=== PATIENT | male | born 1990 | race Caucasian/White ===

== ENCOUNTER 2021-10-27 10:50 | Outpatient (CLI) | payer BC, SELFPAY ==
--- NOTE | 2021-10-27 10:56 | RAD_ITS ---
STUDY: X-RAY - RIGHT KNEE REASON FOR EXAM: Male, 30 years old. PAIN TECHNIQUE: 4 view(s) of the knee. COMPARISON: None. FINDINGS: Normal visualized distal femur. Normal visualized proximal tibia and fibula. Normal proximal tibiofibular articulation. Normal medial femorotibial compartment. Normal lateral femorotibial compartment. Normal patellofemoral articulation. Moderate joint effusion. RAD/Knee 4 or More Views IMPRESSION: Moderate size joint effusion. Electronically Signed: Yovanny Burgess MD at 15:53 EST ,
[2021-10-27 12:33] LABS: Erythrocyte Sedimentation Rate 49 mm/hr (0-20)
[2021-10-27 12:53] LABS: ALB/GLOB Ratio 0.7 RATIO (0.9-2.4); AST(SGOT) 19 U/L (15-37); Alanine Aminotransfer ALT/SGPT 37 U/L (16-61); Albumin, Serum 3.8 g/dL (3.2-5.0); Alkaline Phosphatase 60 U/L (45-117); Anion Gap 5 (5-15); BUN 21 mg/dL (7-18); CRP 4.68 mg/L (0.0-3.0); Chloride 106 mmol/L (98-107); Creatinine, Serum 1.05 mg/dL (0.70-1.30); EST Glomerular Filtration Rate 87 mL/min (>60); Est Glom Filt Rate - Afr Amer 105 mL/min (>60); Globulin 5.6 g/dL (2.2-4.2); Glucose 86 mg/dL (74-106); Protein, Total 9.4 g/dL (6.4-8.2); Sodium Level 135 mmol/L (136-145)
[2021-10-27 13:32] LABS: Hepatitis B Surface Antibody Reactive; Hepatitis B Surface Antigen Non-Reactive (Nonreactive); Hepatitis C Antibody Non-Reactive (Nonreactive)
[2021-10-27 13:49] LABS: Absolute Lymphocyte Count 2.02 X10^3/uL (0.83-4.51); Basophil# 0.03 X10^3/uL; Basophil% 0.4 % (0-1); Eosinophil# 0.23 X10^3/uL; Hematocrit 48.9 % (40-54); Lymphocyte # 2.02 X10^3/ul (0.83-4.51); Mean Corp Hgb Conc 32.7 g/dL (32-36); Mean Corpuscular Hgb 26.2 pg (27.0-32.0); Mean Corpuscular Volume 80.2 fL (80-94); Monocyte# 0.46 X10^3/uL; Monocyte% 5.9 % (0-10); NRBC Flagged by Analyzer 0 % (0-5); Neutrophil % 64.3 % (47-70); Platelet Count 388 K/mm3 (150-450); RBC Distribution Width CV 13.5 % (11.6-14.6); RBC Distribution Width SD 39.2 fl (35.1-43.9); White Blood Count 7.8 K/mm3 (4.4-11.0)
[2021-10-29 15:01] LABS: CCP IgG Antibodies > 250 units (0-19)
== END 2021-10-27 23:59 | disposition short-term general hospital (02) ==
LOC: MTLAB 10:55
PROVIDERS: PCP Family Medicine; Referring Provider Internal Medicine Rheumatology; Visit Provider Internal Medicine Rheumatology
DX: M05.79 Rheumatoid arthritis with rheumatoid factor of multiple sites without organ or systems involvement (principal); M51.37 Other intervertebral disc degeneration, lumbosacral region
CPT/HCPCS: 36415; 73564; 80053; 85025; 85652; 86140; 86200; 86431; 86706; 86803; 87340

== ENCOUNTER 2021-11-21 17:45 | Outpatient (CLI) | payer BC, SELFPAY ==
[2021-11-21 17:47] LABS: Pathologist Comment May follow
[2021-11-21 19:12] LABS: AUTO B FLUID DILUENT BKGD CT WBC <0.1 RBC <0.01 (W<.1,R<.01)
[2021-11-21 19:13] LABS: Appearance /Synovial Fluid Cloudy (CLEAR); Color / Synovial Fluid Red (Pale Yellow); Source / Synovial Fluid R KNEE; Source- Body Fluid SYNOVIAL
[2021-11-21 19:17] LABS: Synovial Fld Polynuclear WBC % 36.9 %
[2021-11-21 19:18] LABS: Synovial Fld Mononuclear WBC % 63.1 %
[2021-11-21 20:34] LABS: Body Fluid QC Type(s) BF2Q,BF3Q; Lymph 22 %; Monocyte /Synovial Fluid 38 %; Neutrophil 40 % (0-25)
[2021-11-25 10:13] LABS: Pathologist Review Reviewed
== END 2021-11-21 23:59 | disposition home or self-care (01) ==
PROVIDERS: PCP Family Medicine; Referring Provider Internal Medicine Rheumatology; Visit Provider Internal Medicine Rheumatology
DX: M05.79 Rheumatoid arthritis with rheumatoid factor of multiple sites without organ or systems involvement (principal); M51.37 Other intervertebral disc degeneration, lumbosacral region; Z79.899 Other long term (current) drug therapy
CPT/HCPCS: 87070; 87075; 87205; 89050; 89051; 89060

== ENCOUNTER 2022-01-14 16:04 | Outpatient (CLI) | payer BC, SELFPAY ==
[2022-01-14 18:02] LABS: Absolute Lymphocyte Count 2.19 X10^3/uL (0.83-4.51); Absolute Neutrophil Count 5.7 X10^3/uL (2.0-7.7); Basophil# 0.05 X10^3/uL; Basophil% 0.6 % (0-1); Eosinophil# 0.17 X10^3/uL; Hemoglobin 16.5 g/dL (13.0-16.5); Lymphocyte # 2.19 X10^3/ul (0.83-4.51); Lymphocyte % 25.2 % (19-41); Mean Corpuscular Hgb 26.8 pg (27.0-32.0); Mean Corpuscular Volume 81.3 fL (80-94); Mean Platelet Vol. 10.2 fl (6.2-12.0); Monocyte# 0.55 X10^3/uL; Monocyte% 6.3 % (0-10); NRBC Flagged by Analyzer 0 % (0-5); Neutrophil # 5.71 X10^3/uL (2.7-7.7); Neutrophil % 65.7 % (47-70); Platelet Count 350 K/mm3 (150-450); RBC Distribution Width CV 13.9 % (11.6-14.6); RBC Distribution Width SD 39.9 fl (35.1-43.9); Red Blood Count 6.15 M/mm3 (4.6-6.2); White Blood Count 8.7 K/mm3 (4.4-11.0)
[2022-01-14 18:14] LABS: AST(SGOT) 36 U/L (15-37); Alanine Aminotransfer ALT/SGPT 80 U/L (16-61); Albumin, Serum 4.2 g/dL (3.2-5.0); Alkaline Phosphatase 57 U/L (45-117); Anion Gap 4 (5-15); BUN 21 mg/dL (7-18); BUN/Creat Ratio 17.8 RATIO (10-20); Calcium,Total 9.4 mg/dL (8.5-10.1); Chloride 105 mmol/L (98-107); Creatinine, Serum 1.18 mg/dL (0.70-1.30); EST Glomerular Filtration Rate 76 mL/min (>60); Est Glom Filt Rate - Afr Amer 91 mL/min (>60); Globulin 4.3 g/dL (2.2-4.2); Glucose 95 mg/dL (74-106); Potassium 4.1 mmol/L (3.5-5.1); Protein, Total 8.5 g/dL (6.4-8.2); Sodium Level 139 mmol/L (136-145)
== END 2022-01-14 23:59 | disposition home or self-care (01) ==
LOC: MTLAB 16:05
PROVIDERS: PCP Family Medicine; Referring Provider Internal Medicine Rheumatology; Visit Provider Internal Medicine Rheumatology
DX: M05.79 Rheumatoid arthritis with rheumatoid factor of multiple sites without organ or systems involvement (principal); M51.37 Other intervertebral disc degeneration, lumbosacral region
CPT/HCPCS: 36415; 80053; 85025

== ENCOUNTER → 2022-02-07 | Outpatient (CLI) | payer BC, SELFPAY ==
--- NOTE | 2022-02-07 09:12 | US_ITS ---
STUDY: ABDOMINAL ULTRASOUND - RIGHT UPPER QUADRANT REASON FOR VISIT: Male, 31 years old ELEVATED LIVER ENZYMES TECHNIQUE: Ultrasound evaluation of the right upper quadrant was performed with real-time and static jurado-scale imaging. TECHNICAL QUALITY: Adequate. COMPARISON: None. FINDINGS: Liver: The liver measures 17.4 cm. There is increased echogenicity consistent with fatty infiltration. The bile ducts are within normal limits. There is hepatic color flow. The direction of portal flow is hepatopetal. There is no demonstrated mass lesion. Gallbladder: Normal distended gallbladder. The gallbladder wall measures 2 mm. There is a negative sonographic Garcia''s sign. There is no pericholecystic fluid. There are no gallstones. Common Bile Duct (C.B.D.): The common bile duct measures 5 mm. Pancreas: Normal size of the head, body and tail of the pancreas. There is normal echogenicity of the pancreas. There is no demonstrated pancreatic mass or cyst. Right Kidney: Normal size of the right kidney. The right kidney measures 11.6 cm. Normal renal cortex. The right cortex measures 2.6 cm. There is no demonstrated renal mass or cyst. There is no right hydronephrosis. US/Abdomen Limited IMPRESSION: Fatty infiltration of the liver. Electronically Signed: Nima Monroy MD at 12:14 EDT ,
== END | disposition home or self-care (01) ==
LOC: US 09:10
PROVIDERS: PCP Family Medicine; Referring Provider Internal Medicine Rheumatology; Visit Provider Internal Medicine Rheumatology
DX: M05.79 Rheumatoid arthritis with rheumatoid factor of multiple sites without organ or systems involvement (principal); M51.37 Other intervertebral disc degeneration, lumbosacral region; Z79.899 Other long term (current) drug therapy
CPT/HCPCS: 76705

== ENCOUNTER → 2022-02-13 | Outpatient (CLI) | payer BC, SELFPAY ==
[2022-02-13 18:33] LABS: ALB/GLOB Ratio 0.9 RATIO (0.9-2.4); AST(SGOT) 34 U/L (15-37); Alanine Aminotransfer ALT/SGPT 60 U/L (16-61); Alkaline Phosphatase 58 U/L (45-117); Anion Gap 5 (5-15); BUN 27 mg/dL (7-18); BUN/Creat Ratio 20.9 RATIO (10-20); Calcium,Total 9.5 mg/dL (8.5-10.1); Chloride 107 mmol/L (98-107); Creatinine, Serum 1.29 mg/dL (0.70-1.30); EST Glomerular Filtration Rate 68 mL/min (>60); Est Glom Filt Rate - Afr Amer 82 mL/min (>60); Globulin 4.5 g/dL (2.2-4.2); Glucose 117 mg/dL (74-106); Protein, Total 8.5 g/dL (6.4-8.2); Sodium Level 139 mmol/L (136-145)
== END | disposition home or self-care (01) ==
LOC: MTLAB 16:16
PROVIDERS: PCP Family Medicine; Referring Provider Internal Medicine Rheumatology; Visit Provider Internal Medicine Rheumatology
DX: M05.79 Rheumatoid arthritis with rheumatoid factor of multiple sites without organ or systems involvement (principal); M51.37 Other intervertebral disc degeneration, lumbosacral region; Z79.899 Other long term (current) drug therapy
CPT/HCPCS: 36415; 80053

== ENCOUNTER → 2022-05-11 | Outpatient (CLI) | payer BC, SELFPAY ==
[2022-05-11 17:54] LABS: Absolute Lymphocyte Count 2.15 X10^3/uL (0.83-4.51); Absolute Neutrophil Count 7.7 X10^3/uL (2.0-7.7); Basophil# 0.05 X10^3/uL; Basophil% 0.5 % (0-1); Eosinophil# 0.12 X10^3/uL; Eosinophils% 1.1 % (0-5); Hematocrit 49.4 % (40-54); Hemoglobin 16.6 g/dL (13.0-16.5); Lymphocyte # 2.15 X10^3/ul (0.83-4.51); Lymphocyte % 19.7 % (19-41); Mean Corp Hgb Conc 33.6 g/dL (32-36); Mean Corpuscular Hgb 27.2 pg (27.0-32.0); Mean Corpuscular Volume 80.9 fL (80-94); Monocyte# 0.89 X10^3/uL; Monocyte% 8.2 % (0-10); NRBC Flagged by Analyzer 0 % (0-5); Neutrophil # 7.67 X10^3/uL (2.7-7.7); Neutrophil % 70.1 % (47-70); Platelet Count 287 K/mm3 (150-450); RBC Distribution Width CV 12.6 % (11.6-14.6); Red Blood Count 6.11 M/mm3 (4.6-6.2); White Blood Count 10.9 K/mm3 (4.4-11.0)
[2022-05-11 18:28] LABS: AST(SGOT) 29 U/L (15-37); Alanine Aminotransfer ALT/SGPT 49 U/L (16-61); Albumin, Serum 4.1 g/dL (3.2-5.0); Alkaline Phosphatase 46 U/L (45-117); Anion Gap 6 (5-15); BUN 20 mg/dL (7-18); BUN/Creat Ratio 17.1 RATIO (10-20); Calcium,Total 9.5 mg/dL (8.5-10.1); Chloride 105 mmol/L (98-107); Creatinine, Serum 1.17 mg/dL (0.70-1.30); EST Glomerular Filtration Rate 76 mL/min (>60); Est Glom Filt Rate - Afr Amer 92 mL/min (>60); Globulin 4.3 g/dL (2.2-4.2); Glucose 89 mg/dL (74-106); Potassium 3.8 mmol/L (3.5-5.1); Protein, Total 8.4 g/dL (6.4-8.2); Sodium Level 139 mmol/L (136-145)
== END | disposition home or self-care (01) ==
PROVIDERS: PCP Family Medicine; Referring Provider Internal Medicine Rheumatology; Visit Provider Internal Medicine Rheumatology
DX: M05.79 Rheumatoid arthritis with rheumatoid factor of multiple sites without organ or systems involvement (principal); M51.37 Other intervertebral disc degeneration, lumbosacral region; K76.0 Fatty (change of) liver, not elsewhere classified; Z79.899 Other long term (current) drug therapy
CPT/HCPCS: 36415; 80053; 85025

== ENCOUNTER → 2022-08-07 | Outpatient (CLI) | payer BC, SELFPAY ==
[2022-08-07 17:43] LABS: Absolute Lymphocyte Count 2.25 X10^3/uL (0.83-4.51); Absolute Neutrophil Count 4.8 X10^3/uL (2.0-7.7); Basophil# 0.05 X10^3/uL; Basophil% 0.6 % (0-1); Eosinophil# 0.23 X10^3/uL; Eosinophils% 2.8 % (0-5); Hematocrit 47.9 % (40-54); Hemoglobin 15.5 g/dL (13.0-16.5); Lymphocyte # 2.25 X10^3/ul (0.83-4.51); Lymphocyte % 27.7 % (19-41); Mean Corp Hgb Conc 32.4 g/dL (32-36); Mean Corpuscular Hgb 26.7 pg (27.0-32.0); Mean Corpuscular Volume 82.4 fL (80-94); Mean Platelet Vol. 10.1 fl (6.2-12.0); Monocyte# 0.78 X10^3/uL; Monocyte% 9.6 % (0-10); NRBC Flagged by Analyzer 0 % (0-5); Neutrophil % 59.1 % (47-70); Platelet Count 308 K/mm3 (150-450); RBC Distribution Width CV 13.5 % (11.6-14.6); RBC Distribution Width SD 40.2 fl (35.1-43.9); Red Blood Count 5.81 M/mm3 (4.6-6.2); White Blood Count 8.1 K/mm3 (4.4-11.0)
[2022-08-07 18:15] LABS: ALB/GLOB Ratio 0.9 RATIO (0.9-2.4); AST(SGOT) 29 U/L (15-37); Alanine Aminotransfer ALT/SGPT 52 U/L (16-61); Albumin, Serum 3.9 g/dL (3.2-5.0); Alkaline Phosphatase 60 U/L (45-117); Anion Gap 9 (5-15); BUN 20 mg/dL (7-18); BUN/Creat Ratio 17.2 RATIO (10-20); Calcium,Total 9.2 mg/dL (8.5-10.1); Chloride 103 mmol/L (98-107); Creatinine, Serum 1.16 mg/dL (0.70-1.30); EST Glomerular Filtration Rate 77 mL/min (>60); Est Glom Filt Rate - Afr Amer 93 mL/min (>60); Globulin 4.3 g/dL (2.2-4.2); Glucose 100 mg/dL (74-106); Potassium 3.7 mmol/L (3.5-5.1); Protein, Total 8.2 g/dL (6.4-8.2); Sodium Level 139 mmol/L (136-145)
== END | disposition home or self-care (01) ==
LOC: MTLAB 16:39
PROVIDERS: PCP Family Medicine; Referring Provider Internal Medicine Rheumatology; Visit Provider Internal Medicine Rheumatology
DX: M05.79 Rheumatoid arthritis with rheumatoid factor of multiple sites without organ or systems involvement (principal); M51.37 Other intervertebral disc degeneration, lumbosacral region; K76.0 Fatty (change of) liver, not elsewhere classified; Z79.899 Other long term (current) drug therapy
CPT/HCPCS: 36415; 80053; 85025

== ENCOUNTER → 2023-02-05 | Outpatient (CLI) | payer BC, SELFPAY ==
[2023-02-05 17:50] LABS: Absolute Lymphocyte Count 2.14 X10^3/uL (0.83-4.51); Absolute Neutrophil Count 5.4 X10^3/uL (2.0-7.7); Basophil# 0.04 X10^3/uL; Basophil% 0.5 % (0-1); Eosinophil# 0.22 X10^3/uL; Eosinophils% 2.6 % (0-5); Hematocrit 50.4 % (40-54); Hemoglobin 16.6 g/dL (13.0-16.5); Lymphocyte # 2.14 X10^3/ul (0.83-4.51); Lymphocyte % 25.1 % (19-41); Mean Corp Hgb Conc 32.9 g/dL (32-36); Mean Corpuscular Hgb 26.7 pg (27.0-32.0); Mean Corpuscular Volume 81.2 fL (80-94); Mean Platelet Vol. 10.1 fl (6.2-12.0); Monocyte% 8.2 % (0-10); NRBC Flagged by Analyzer 0 % (0-5); Neutrophil # 5.39 X10^3/uL (2.7-7.7); Neutrophil % 63.2 % (47-70); Platelet Count 320 K/mm3 (150-450); RBC Distribution Width CV 12.9 % (11.6-14.6); RBC Distribution Width SD 37.4 fl (35.1-43.9); Red Blood Count 6.21 M/mm3 (4.6-6.2); White Blood Count 8.5 K/mm3 (4.4-11.0)
[2023-02-05 18:04] LABS: ALB/GLOB Ratio 0.9 RATIO (0.9-2.4); AST(SGOT) 35 U/L (15-37); Alanine Aminotransfer ALT/SGPT 59 U/L (16-61); Alkaline Phosphatase 56 U/L (45-117); Anion Gap 5 (5-15); BUN 23 mg/dL (7-18); BUN/Creat Ratio 19.5 RATIO (10-20); Calcium,Total 9.2 mg/dL (8.5-10.1); Chloride 110 mmol/L (98-107); Creatinine, Serum 1.18 mg/dL (0.70-1.30); EST Glomerular Filtration Rate 75 mL/min (>60); Est Glom Filt Rate - Afr Amer 91 mL/min (>60); Globulin 4.5 g/dL (2.2-4.2); Glucose 98 mg/dL (74-106); Potassium 3.9 mmol/L (3.5-5.1); Protein, Total 8.5 g/dL (6.4-8.2); Sodium Level 141 mmol/L (136-145)
== END | disposition home or self-care (01) ==
LOC: MTLAB 16:50
PROVIDERS: PCP Family Medicine; Referring Provider Internal Medicine Rheumatology; Visit Provider Internal Medicine Rheumatology
DX: M05.79 Rheumatoid arthritis with rheumatoid factor of multiple sites without organ or systems involvement (principal); Z79.899 Other long term (current) drug therapy; M51.37 Other intervertebral disc degeneration, lumbosacral region; K76.0 Fatty (change of) liver, not elsewhere classified
CPT/HCPCS: 36415; 80053; 85025

== ENCOUNTER → 2023-08-06 | Outpatient (CLI) | payer BC, SELFPAY ==
[2023-08-06 17:49] LABS: Absolute Lymphocyte Count 2.27 X10^3/uL (0.83-4.51); Absolute Neutrophil Count 4.6 X10^3/uL (2.0-7.7); Basophil# 0.06 X10^3/uL; Basophil% 0.8 % (0-1); Eosinophil# 0.27 X10^3/uL; Eosinophils% 3.4 % (0-5); Hematocrit 48.9 % (40-54); Hemoglobin 15.6 g/dL (13.0-16.5); Lymphocyte # 2.27 X10^3/ul (0.83-4.51); Lymphocyte % 28.7 % (19-41); Mean Corp Hgb Conc 31.9 g/dL (32-36); Mean Corpuscular Hgb 26.5 pg (27.0-32.0); Mean Platelet Vol. 10.4 fl (6.2-12.0); Monocyte# 0.67 X10^3/uL; Monocyte% 8.5 % (0-10); NRBC Flagged by Analyzer 0 % (0-5); Neutrophil # 4.61 X10^3/uL (2.7-7.7); Neutrophil % 58.3 % (47-70); Platelet Count 294 K/mm3 (150-450); RBC Distribution Width SD 38.8 fl (35.1-43.9); Red Blood Count 5.89 M/mm3 (4.6-6.2); White Blood Count 7.9 K/mm3 (4.4-11.0)
[2023-08-06 18:43] LABS: ALB/GLOB Ratio 0.8 RATIO (0.9-2.4); AST(SGOT) 28 U/L (15-37); Alanine Aminotransfer ALT/SGPT 53 U/L (16-61); Albumin, Serum 3.7 g/dL (3.2-5.0); Alkaline Phosphatase 55 U/L (45-117); Anion Gap 7 (5-15); BUN 17 mg/dL (7-18); BUN/Creat Ratio 14.8 RATIO (10-20); Calcium,Total 9.2 mg/dL (8.5-10.1); Chloride 106 mmol/L (98-107); Creatinine, Serum 1.15 mg/dL (0.70-1.30); EST Glomerular Filtration Rate 77 mL/min (>60); Est Glom Filt Rate - Afr Amer 93 mL/min (>60); Globulin 4.6 g/dL (2.2-4.2); Glucose 85 mg/dL (74-106); Potassium 3.6 mmol/L (3.5-5.1); Protein, Total 8.3 g/dL (6.4-8.2); Sodium Level 141 mmol/L (136-145)
== END | disposition home or self-care (01) ==
LOC: MTLAB 16:31
PROVIDERS: PCP Family Medicine; Referring Provider Internal Medicine Rheumatology; Visit Provider Internal Medicine Rheumatology
DX: M05.79 Rheumatoid arthritis with rheumatoid factor of multiple sites without organ or systems involvement (principal); K76.0 Fatty (change of) liver, not elsewhere classified; Z79.899 Other long term (current) drug therapy
CPT/HCPCS: 36415; 80053; 85025

== ENCOUNTER → 2024-01-28 | Outpatient (CLI) | payer BC, SELFPAY ==
[2024-01-28 17:30] LABS: Absolute Lymphocyte Count 2.42 X10^3/uL (0.83-4.51); Absolute Neutrophil Count 5.1 X10^3/uL (2.0-7.7); Basophil# 0.05 X10^3/uL; Basophil% 0.6 % (0-1); Eosinophil# 0.21 X10^3/uL; Eosinophils% 2.5 % (0-5); Hematocrit 44.7 % (40-54); Hemoglobin 14.5 g/dL (13.0-16.5); Lymphocyte # 2.42 X10^3/ul (0.83-4.51); Lymphocyte % 28.2 % (19-41); Mean Corp Hgb Conc 32.4 g/dL (32-36); Mean Corpuscular Hgb 26.4 pg (27.0-32.0); Mean Corpuscular Volume 81.3 fL (80-94); Mean Platelet Vol. 10.4 fl (6.2-12.0); Monocyte# 0.72 X10^3/uL; Monocyte% 8.4 % (0-10); NRBC Flagged by Analyzer 0 % (0-5); Neutrophil # 5.14 X10^3/uL (2.7-7.7); Neutrophil % 59.9 % (47-70); Platelet Count 302 K/mm3 (150-450); RBC Distribution Width CV 13.2 % (11.6-14.6); RBC Distribution Width SD 38.3 fl (35.1-43.9); White Blood Count 8.6 K/mm3 (4.4-11.0)
[2024-01-28 18:06] LABS: ALB/GLOB Ratio 0.9 RATIO (0.9-2.4); AST(SGOT) 28 U/L (15-37); Alanine Aminotransfer ALT/SGPT 62 U/L (16-61); Albumin, Serum 3.6 g/dL (3.2-5.0); Alkaline Phosphatase 51 U/L (45-117); Anion Gap 5 (5-15); BUN 17 mg/dL (7-18); BUN/Creat Ratio 15.6 RATIO (10-20); Calcium,Total 8.8 mg/dL (8.5-10.1); Chloride 111 mmol/L (98-107); Creatinine, Serum 1.09 mg/dL (0.70-1.30); EST Glomerular Filtration Rate 82 mL/min (>60); Est Glom Filt Rate - Afr Amer 99 mL/min (>60); Globulin 4.2 g/dL (2.2-4.2); Glucose 92 mg/dL (74-106); Potassium 3.7 mmol/L (3.5-5.1); Protein, Total 7.8 g/dL (6.4-8.2); Sodium Level 141 mmol/L (136-145)
== END | disposition home or self-care (01) ==
LOC: MTLAB 16:38
PROVIDERS: PCP Family Medicine; Referring Provider Internal Medicine Rheumatology; Visit Provider Internal Medicine Rheumatology
DX: M05.70 Rheumatoid arthritis with rheumatoid factor of unspecified site without organ or systems involvement (principal); M51.37 Other intervertebral disc degeneration, lumbosacral region; K76.0 Fatty (change of) liver, not elsewhere classified; Z79.899 Other long term (current) drug therapy
CPT/HCPCS: 36415; 80053; 85025

== ENCOUNTER → 2024-04-28 | Outpatient (CLI) | payer BC, SELFPAY ==
[2024-04-28 17:39] LABS: Absolute Lymphocyte Count 2.61 X10^3/uL (0.83-4.51); Absolute Neutrophil Count 5.5 X10^3/uL (2.0-7.7); Basophil# 0.06 X10^3/uL; Basophil% 0.7 % (0-1); Eosinophil# 0.24 X10^3/uL; Eosinophils% 2.6 % (0-5); Hematocrit 47.7 % (40-54); Hemoglobin 15.4 g/dL (13.0-16.5); Lymphocyte # 2.61 X10^3/ul (0.83-4.51); Lymphocyte % 28.6 % (19-41); Mean Corp Hgb Conc 32.3 g/dL (32-36); Mean Corpuscular Hgb 26.6 pg (27.0-32.0); Mean Corpuscular Volume 82.4 fL (80-94); Mean Platelet Vol. 10.1 fl (6.2-12.0); Monocyte# 0.69 X10^3/uL; Monocyte% 7.6 % (0-10); NRBC Flagged by Analyzer 0 % (0-5); Neutrophil # 5.47 X10^3/uL (2.7-7.7); Neutrophil % 60.1 % (47-70); Platelet Count 295 K/mm3 (150-450); RBC Distribution Width CV 13.3 % (11.6-14.6); RBC Distribution Width SD 39.6 fl (35.1-43.9); Red Blood Count 5.79 M/mm3 (4.6-6.2); White Blood Count 9.1 K/mm3 (4.4-11.0)
[2024-04-28 18:18] LABS: ALB/GLOB Ratio 0.9 RATIO (0.9-2.4); AST(SGOT) 38 U/L (15-37); Alanine Aminotransfer ALT/SGPT 62 U/L (16-61); Albumin, Serum 3.9 g/dL (3.2-5.0); Alkaline Phosphatase 53 U/L (45-117); Anion Gap 8 (5-15); BUN 20 mg/dL (7-18); BUN/Creat Ratio 13.8 RATIO (10-20); Calcium,Total 9.4 mg/dL (8.5-10.1); Chloride 107 mmol/L (98-107); Creatinine, Serum 1.45 mg/dL (0.70-1.30); EST Glomerular Filtration Rate 59 mL/min (>60); Est Glom Filt Rate - Afr Amer 71 mL/min (>60); Globulin 4.5 g/dL (2.2-4.2); Glucose 95 mg/dL (74-106); Potassium 3.6 mmol/L (3.5-5.1); Protein, Total 8.4 g/dL (6.4-8.2); Sodium Level 139 mmol/L (136-145)
== END | disposition home or self-care (01) ==
LOC: MTLAB 16:37
PROVIDERS: PCP Family Medicine; Referring Provider Internal Medicine Rheumatology; Visit Provider Internal Medicine Rheumatology
DX: M05.70 Rheumatoid arthritis with rheumatoid factor of unspecified site without organ or systems involvement (principal); K76.0 Fatty (change of) liver, not elsewhere classified; Z79.899 Other long term (current) drug therapy
CPT/HCPCS: 36415; 80053; 85025

== ENCOUNTER → 2024-07-21 | Outpatient (CLI) | payer BC, SELFPAY ==
[2024-07-21 17:31] LABS: Absolute Lymphocyte Count 2.21 X10^3/uL (0.83-4.51); Absolute Neutrophil Count 6.1 X10^3/uL (2.0-7.7); Basophil# 0.05 X10^3/uL; Basophil% 0.5 % (0-1); Eosinophil# 0.23 X10^3/uL; Eosinophils% 2.4 % (0-5); Hematocrit 51.4 % (40-54); Hemoglobin 16.8 g/dL (13.0-16.5); Lymphocyte # 2.21 X10^3/ul (0.83-4.51); Lymphocyte % 23.5 % (19-41); Mean Corp Hgb Conc 32.7 g/dL (32-36); Mean Corpuscular Hgb 26.5 pg (27.0-32.0); Mean Corpuscular Volume 81.1 fL (80-94); Mean Platelet Vol. 9.9 fl (6.2-12.0); Monocyte# 0.77 X10^3/uL; Monocyte% 8.2 % (0-10); NRBC Flagged by Analyzer 0 % (0-5); Neutrophil # 6.11 X10^3/uL (2.7-7.7); Platelet Count 273 K/mm3 (150-450); RBC Distribution Width CV 13.2 % (11.6-14.6); RBC Distribution Width SD 38.1 fl (35.1-43.9); Red Blood Count 6.34 M/mm3 (4.6-6.2); White Blood Count 9.4 K/mm3 (4.4-11.0)
--- OUTSIDE RECORDS SUMMARY | 2024-07-21 17:41 | XMS RPT_ITS | CCD ---
Author Organization [facility] Care Team Providers Care Advice Clerk Name Role Phone Tony Garcia MD Unavailable Tony Garcia MD Unavailable Mervat PETE, Dr. Joseph Unavailable [phone] Yesy ANG, Tristan Maxwell Unavailable [phone] Kirby BUNDLE SORTER, Judith Unavailable Unavailable Don DENNY, Ynes Loza Unavailable Unavaila sharon Caro BUNDLE SORTER, Simone Unavailable Unavailable Kyleigh BUNDLE SORTER, Hallie Mckeon Unavailable Unavailab le Zaugg BUNDLE SORTER, Anna Unavailable Unavailable Unavailable Unavailable Medications Current Medications Medication Drug Class(es) Dates Sig (Normalized) Sig (Original) Glucosamine Chondr 1500 Complx Oral Capsule (9 sources) Glucosamine Chondr 1500 Complx Oral Capsule ; 1 daily hydroxychloroquine sulfate 200 mg oral tablet (9 sources) Antimalarial, Antirheumatic Agent PlaqueniL 200 mg tablet ; daily (200 mg) naproxen sodium 220 mg oral capsule (9 sources) Nonsteroidal Anti-inflammatory Drug take 1 capsule by mouth once daily Aleve 220 MG Oral Capsule ; 1 daily (220 MG) Completed/Discontinued Medications Medication Drug Class(es) Dates Sig (Normalized) Sig (Original) amoxicillin 500 mg oral tablet (9 sources) Penicillin-class Antibacterial Start: 01-24-2019 End: 02-03-2019 take 1 tablet by mouth three times daily Amoxicillin 500 MG Oral Tablet ; 1 (one) Tablet tid for 10 days Quantity: 30 {Tablet} Refills: 0 Ordered: 24-Jan-2019 MD Tony Garcia Start: 24-Jan-2019 End: 03-Feb-2019 Status: Inactive benzonatate 100 mg oral capsule (9 sources) Non-narcotic Antitussive Start: 01-14-2024 End: 04-10-2024 benzonatate 100 mg capsule ; 1 (one) capsule tid prn cough for 0 days Quantity: 30 {Capsule} Refills: 0 Ordered: 10-Apr-2024 JACOB Orrelle Start: 14-Jan-2024 End: 10-Apr-2024 Status: Inactive cephalexin 500 mg oral capsule (9 sources) Cephalosporin Antibacterial Start: 01-14-2024 End: 01-24-2024 cephALEXin 500 mg capsule ; 2 (two) capsule bid for 10 days Quantity: 40 {Capsule} Refills: 0 Ordered: 14-Jan-2024 MD Tony Garcia Start: 14-Jan-2024 End: 24-Jan-2024 Status: Inactive cyclobenzaprine hydrochloride 10 mg oral tablet (9 sources) Muscle Relaxant Start: 09-02-2018 End: 01-24-2019 take 1 tablet by mouth three times daily as needed Cyclobenzaprine HCl 10 MG Oral Tablet ; 1 (one) Tablet Three times a day as needed for 0 days Quantity: 30 {Tablet} Refills: 0 Ordered: 24-Jan-2019 JACOB Arizmendi Hallie Mckeon Start: 02-Sep-2018 End: 24-Jan-2019 Status: Inactive Comments: Medication taken as needed. may cause drowsiness Comment on above: Medication taken as needed. may cause drowsiness Fish Oils (9 sources) take 1 capsule by mouth once daily Fish Oil 300 MG Oral Capsule ; 1 daily (300 MG) Status: Inactive take 1 capsule by mouth once chiquita ly Fish Oil 300 MG Oral Capsule ; 1 daily (300 MG) meloxicam 15 mg oral tablet (9 sources) Nonsteroidal Anti-inflammatory Drug Start: 08-11-2021 End: 01-14-2024 meloxicam 15 mg tablet ; 1 (one) Tablet daily for 0 days Quantity: 90 {Tablet} Refills: 0 Ordered: 14-Jan-2024 JACOB Caro Start: 11-Aug-2021 End: 14-Jan-2024 Status: Inactive predniSONE 20 mg oral tablet (9 sources) Start: 09-02-2018 End: 01-24-2019 take 3 tablets by mouth once daily, then take 2 tablets by mouth once daily, then take 1 tablet by mouth once daily, then take 0.5 tablet by mouth once daily PredniSONE 20 MG Oral Tablet ; Tablet for 0 days Quantity: 20 {Tablet} Refills: 0 Ordered: 24-Jan-2019 JACOB Arizmendi Hallie Mckeon Start: 02-Sep-2018 End: 24-Jan-2019 Status: Inactive Comments: Take 3tabs qd for 3 days thenTake 2tabs qd for 3 days thenTake 1tab qd for 3 days thenTake 1/2tab qd for 4 days. Comment on above: Take 3tabs qd for 3 days thenTake 2tabs qd for 3 days thenTake 1tab qd for 3 days thenTake 1/2tab qd for 4 days. Problems Active Problems Problem Classification Problem Date Documented Da te Episodic/Chronic Chronic obstructive pulmonary disease and bronchiectasis (18 sources) Bronchitis; Translations: [Bronchitis, not specified as acute or chronic] 01-14-2024 Episodic Diabetes mellitus without complication (8 sources) Hyperglycemia; Translations: [Hyperglycemia, unspecified] 04-10-2024 Episodic Immunizations and screening for infectious disease (8 sources) Requires diphtheria, tetanus and pertussis vaccination; Translations: [Encounter for immunization] 04-10-2024 Episodic Influenza (18 sources) Influenza; Translations: [Influenza due to unidentified influenza virus with other respiratory manifestations] 10-13-2019 Episodic Osteoarthritis (20 sources) Osteoarthritis of multiple joints ; Translations: [Polyosteoarthritis, unspecified] 01-14-2024 Chronic Other connective tissue disease (18 sources) Disorder of tendon; Translations: [Unspecified disorder of synovium and tendon, unspecified site] 01-14-2024 Episodic Other non-traumatic joint disorders (18 sources) Pain in wrist; Translations: [Pain in unspecified wrist] 01-14-2024 Episodic Other upper respiratory infections (18 sources) Pharyngitis; Translations: [Acute pharyngitis, unspecified] 10-13-2019 Episodic Rheumatoid arthritis and related disease (20 sources) Rheumatoid arthritis; Translations: [Rheumatoid arthritis, unspecified] 01-14-2024 Chronic Screening and history of mental health and substance abuse codes (20 sources) Patient encounter status; Translations: [Encounter for screening for depression] 01-14-2024 Episodic Spondylosis; intervertebral disc disorders; other back problems (18 sources) Low back pain; Translations: [Lumbago] 01-14-2024 Episodic Past or Other Problems Problem Classification Problem Date Documented Da te Episodic/Chronic Unclassified (9 sources) Cold Symptoms - Symptoms include productive cough, wheezing and fever (Wednesday -Wednesday 100-102), but do not include nasal congestion. The onset was 5 day(s) ago. The patient describes this as mild and improving. Current treatment includes non-prescription cold medication. Note for Upper respiratory infection : reviewed by [facility] 01-14-2024 Unclassified (9 sources) Wrist pain - The onset of the wrist pain has been gradual following no specific incident and has been occurring in a persistent pattern for 1 year. The course has been recurrent. The wrist pain is characterized as a moderate stiffness. Aggravating factors include any movement. Relieving factors include bracing (sometimes). Associated features include painful ROM, decreased ROM, difficulty opening doors and difficulty turning keys in the ignition, but do not include muscle weakness, popping/crepitus, difficulty with fine motor skills or difficulty with lifting. Note for Wrist pain : both wristspt says its goes from joint to joint it seems likehas a hard time gripping things as well 07-02-2021 Unclassified (5 sources) Knee pain - The knee pain has been occurring for 4 days. The knee pain is in the left knee. The knee pain is characterized as a sharp stabbing (Throbbing). The knee pain is described as being located in the entire knee. The knee pain is aggravated by physical activity and work duties. There were no relieving factors. The symptoms have been associated with joint swelling, but have not been associated with warmth. Note for Knee pain : No recent injuries. No family history of arthritis 10-13-2019 Unclassified (5 sources) [ADDITIONAL REASON] Hand pain - The onset of the hand pain has been gradual and has been occurring in a persistent pattern for 4 days. The course has been worsening. The hand pain is characterized as a sharp stabbing (throbbing). The hand pain is described as being located in the entire hand (bilateral hands). The hand pain is aggravated by physical activity. There have been no relieving factors. The symptoms have been associated with joint swelling, but have not been associated with warmth or erythema. Note for Hand pain : No recent injuries. 10-13-2019 Unclassified (9 sources) Cold Symptoms - Symptoms include sore throat, productive cough, chills, general malaise and facial pain, but do not include sneezing, nasal congestion, runny nose, ear pain, fever or headache. The onset was sudden 3 day(s) ago. The symptoms occur constantly. The patient describes this as moderate in severity and unchanged. Current treatment includes non-prescription cold medication. Patient denies history of seasonal allergies or asthma. 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 The pain is characterized as a dull ache (becomes a sharper pain at times). The pain is located in the lower back and does not radiate. The pain has been associated with back stiffness (sometimes). Note for Back pain : With bending over and getting back up, the pain becomes worse.Can feel an area that is like a bump on his lower back. reviewed by [facility] 09-02-2018 Unclassified (9 sources) Cold Symptoms - Symptoms include nasal congestion, runny nose, sore throat, productive cough, fever and chills. The onset was sudden 4 day(s) ago. The symptoms occur constantly. The patient describes this as moderate in severity and unchanged. Current treatment includes non-prescription cold medication. Risk factors do not include smoking. The patient has not been exposed to an individual with similar symptoms. Note for Upper respiratory infection : highest fever was 103 on wednesday night/wednesday morning reviewed by [facility] 10-12-2017 Unclassified (4 sources) Hand pain - The onset of the hand pain has been gradual and has been occurring in a persistent pattern for 4 days. The course has been worsening. The hand pain is characterized as a sharp stabbing (throbbing). The hand pain is described as being located in the entire hand (bilateral hands). The hand pain is aggravated by physical activity. There have been no relieving factors. The symptoms have been associated with joint swelling, but have not been associated with warmth or erythema. Note for Hand pain : No recent injuries. 10-13-2019 Unclassified (4 sources) [ADDITIONAL REASON] Knee pain - The knee pain has been occurring for 4 days. The knee pain is in the left knee. The knee pain is characterized as a sharp stabbing (Throbbing). The knee pain is described as being located in the entire knee. The knee pain is aggravated by physical activity and work duties. There were no relieving factors. The symptoms have been associated with joint swelling, but have not been associated with warmth. Note for Knee pain : No recent injuries. No family history of arthritis 10-13-2019 Unclassified (1 source) Well adult male 04-10-2024 Unclassified (4 sources) Well adult male - The patient feels well with minor complaints (dizzy off and on at work and feels lightheaded that's why they wanted his a1c checked, sometimes better when he eats something sweet), has decreased energy level (normally he has good energy but today it is decreased) and is sleeping well. The patient has a balanced diet. The patient exercises none (walking and lifting at work). The patient sleeps 7 hours per night. Note for Well adult male : pt is not fasting reviewed by [facility] 04-10-2024 Results Test Name Value Interpretation Reference Range Facility Laboratory - Hematology and Cell countson 04-10-2024 HbA1c (Bld) [Mass fraction] 5.9 % Normal 4.6 - 7.1 % [facility], [facility].; [facility], [facility]. NEIL SCREEN, IFA, W/REFL KAYAE R AND FARRAHon 08-15-2021 NEIL SCREEN, IFA Negative Normal NEGATIVE [facility] Comment on above: Result Comment: NEIL IFA is a first line screen for detecting the presence of up to approximately 150 autoantibodies in various autoimmune diseases. A negative NEIL IFA result suggests an NEIL-associated autoimmune disease is not present at this time, but is not definitive. If there is high clinical suspicion for Sjogren's syndrome, testing for anti-SS-A/Ro antibody should be considered. Anti-Arianna-1 antibody should be considered for clinically suspected inflammatory myopathies. AC-0: Negative International Consensus on NEIL Patterns (https://doi.org/10.1515/eqct-3806-1449) For additional information, please refer to http://education.Bettyvision.locr/faq/KCG072 (This link is being provided for informational/ educational purposes only.) Performed By: #### 1 0231, 4418, 809, 249 #### [facility] [address], [address] [place] [address] Testing Consultant: Rodolfo Jonas MD [facility] 08-15-2021 Albumin [Mass/Vol] 4.5 g/dL Normal 3.6-5.1 [facility] Comment on above: Performed By: #### 1 0231, 4418, 809, 249 #### [facility] of [address], [address] [place] [address] Testing Consultant: Rodolfo Jonas MD Albumin/Globulin [Mass ratio] 1.1 {ratio} Normal 1.0-2.5 [facility] Comment on above: Performed By: #### 1 0231, 4418, 809, 249 #### [facility] of [place] [address] Testing Consultant: Rodolfo Jonas MD ALP [Catalytic activity/Vol] 58 U/L Normal 36-130 [facility] Comment on above: Performed By: #### 1 0231, 4418, 809, 249 #### [facility] of [place] [address] Testing Consultant: Rodolfo Jonas MD ALT [Catalytic activity/Vol] 31 U/L Normal 9-46 [facility] Comment on above: Performed By: #### 1 0231, 4418, 809, 249 #### [facility] of [place] [address] Testing Consultant: Rodolfo Jonas MD AST [Catalytic activity/Vol] 26 U/L Normal 10-40 [facility] Comment on above: Performed By: #### 1 0231, 4418, 809, 249 #### [facility] of [place] [address] Testing Consultant: Rodolfo Jonas MD Bilirubin [Mass/Vol] 0.3 mg/dL Normal 0.2-1.2 [facility] Comment on above: Performed By: #### 1 0231, 4418, 809, 249 #### [facility] of [place] [address] Testing Consultant: Rodolfo Jonas MD BUN/CREATININE RATIO NOT APPLICABLE Normal 6-22 [facility] Comment on above: Performed By: #### 1 0231, 4418, 809, 249 #### [facility] [place] [address] Testing Consultant: Rodolfo Jonas MD Calcium [Mass/Vol] 9.9 mg/dL Normal 8.6-10.3 [facility] Comment on above: Performed By: #### 1 0231, 8, 809, 249 #### [facility] of [address], [address] [place] [address] Testing Consultant: Rodolfo Jonas MD Chloride [Moles/Vol] 102 mmol/L Normal 98-110 [facility] Comment on above: Performed By: #### 1 0231, 4418, 809, 249 #### [facility] [place] [address] Testing Consultant: Rodolfo Jonas MD CO2 [Moles/Vol] 25 mmol/L Normal 20-32 [facility] Comment on above: Performed By: #### 1 0231, 441, 809, 249 #### [facility] [place] [address] Testing Consultant: Rodolfo Jonas MD Creatinine [Mass/Vol] 1.11 mg/dL Normal 0.60-1.[address] [facility] [address] [facility] Comment on above: Performed By: #### 1 0231, 4417, 809, 249 #### [facility] [place] [address] Testing Consultant: Rodolfo Jonas MD eGFR NON-AFR. NAURUAN 87 mL/min/1.73m2 Normal > OR = 60 [facility] Comment on above: Performed By: #### 1 0231, 4418, 809, 249 #### [facility] of [place] [address] Testing Consultant: Rodolfo Jonas MD GFR/1.73 sq M.predicted among blacks MDRD (S/P/Bld) [Vol rate/Area] 101 mL/min/{1.73_m2} Normal > OR = 60 [facility] Comment on above: Performed By: #### 1 0231, 4418, 809, 249 #### [facility] [place] [address] Testing Consultant: Rodolfo Jonas MD Globulin (S) [Mass/Vol] 4.2 g/dL High 1.9-3.7 [facility] Comment on above: Performed By: #### 1 0231, 8, 809, 249 #### [facility] [place] [address] Testing Consultant: Rodolfo Jonas MD Glucose [Mass/Vol] 95 mg/dL Normal 65-99 [facility] Comment on above: Result Comment: Fasting reference interval Performed By: #### 1 0231, 8, 809, 249 #### [facility] [place] [address] Testing Consultant: Rodolfo Jonas MD Potassium [Moles/Vol] 4.2 mmol/L Normal 3.5-5.[address] [facility] [address] [facility] Comment on above: Performed By: #### 1 0231, 441, 809, 249 #### [facility] [place] [address] Testing Consultant: Rodolfo Jonas MD Protein [Mass/Vol] 8.7 g/dL High 6.1-8.1 [facility] Comment on above: Performed By: #### 1 0231, 8, 809, 249 #### [facility] [place] [address] Testing Consultant: Rodolfo Jonas MD Sodium [Moles/Vol] 139 mmol/L Normal 135-146 [facility] Comment on above: Performed By: #### 1 0231, 4418, 809, 249 #### [facility] of [place] [address] Testing Consultant: Rodolfo Jonas MD Urea nitrogen [Mass/Vol] 22 mg/dL Normal 7-25 [facility] Comment on above: Performed By: #### 1 0231, 4418, 809, 249 #### [facility] [place] [address] Testing Consultant: Rodolfo Jonas MD RHEUMATOID FACTORon 08-15-20 RHEUMATOID FACTOR 103 IU/mL High <14 [facility] Comment on above: Performed By: #### 1 0231, 4418, 809, 249 #### [facility] [address], [address] [place] [address] Testing Consultant: Rodolfo Jonas MD SED RATE BY MODIFIED WESTERG RENon 08-15-2021 SED RATE BY MODIFIED WESTERGREN 34 mm/h High < OR = 15 [facility] Comment on above: Performed By: #### 1 0231, 4418, 809, 249 #### [facility] [place] [address] Testing Consultant: Rodolfo Jonas MD Laboratory - Chemistry and C hemistry - challengeon 08-14-2021 Albumin [Mass/Vol] 4.5 g/dL Normal 3.6 - 5.1 g/dL [facility], [facility].; [facility], [facility] Albumin/Globulin [Mass ratio] 1.1 {ratio} Normal 1.0 - 2.5 [facility], [facility].; [facility], [facility]. ALP [Catalytic activity/Vol] 58 U/L Normal 36 - 130 U/L [facility], [facility].; [facility], [facility]. ALT [Catalytic activity/Vol] 31 U/L Normal 9 - 46 U/L [facility], [facility].; [facility], [facility]. AST [Catalytic activity/Vol] 26 U/L Normal 10 - 40 U/L [facility], [facility].; [facility], [facility]. Bilirubin [Mass/Vol] 0.3 mg/dL Normal 0.2 - 1 .2 mg/dL [facility], [facility].; [facility], [facility] Calcium [Mass/Vol] 9.9 mg/dL Normal 8.6 - 10. 3 mg/dL [facility].; [facility], [facility] Chloride [Moles/Vol] 102 mmol/L Normal 98 - 11 0 mmol/L [facility]; [facility], [facility] CO2 [Moles/Vol] 25 mmol/L Normal 20 - 32 mmol/L [facility]; [facility], [facility] Creatinine [Mass/Vol] 1.11 mg/dL Normal 0.60 - 1.35 mg/dL [facility]; [facility], [facility] GFR/1.73 sq M.predicted among blacks MDRD (S/P/Bld) [Vol rate/Area] 101 mL/min/{1.73_m2} Normal [facility]; [facility], [facility] Glucose [Mass/Vol] 95 mg/dL Normal 65 - 99 mg/dL [facility]; [facility], [facility] Potassium [Moles/Vol] 4.2 mmol/L Normal 3.5 - 5.3 mmol/L [facility]; [facility], [facility] Protein [Mass/Vol] 8.7 g/dL Abnormal 6.1 - 8.1 g/dL [facility]; [facility], [facility] Sodium [Moles/Vol] 139 mmol/L Normal 135 - 146 mmol/L [facility]; [facility], [facility] Urea nitrogen [Mass/Vol] 22 mg/dL Normal 7 - 25 mg/dL [facility]; [facility], [facility] No Panel Informationon 08-14 NEIL SCREEN, IFA Negative Normal [facility]; [facility], [facility] BUN/CREATININE RATIO NOT APPLICABLE Normal 6 - 22 [facility]; [facility], [facility] eGFR NON-AFR. NAURUAN 87 Normal [facility]; [facility], [facility] GLOBULIN 4.2 Abnormal 1.9 - 3.7 [facility]; [facility], [facility] RHEUMATOID FACTOR 103 {IU/mL} Abnormal [facility]; [facility], [facility] SED RATE BY MODIFIED WESTERGREN 34 mm/h Abnormal [facility]; [facility] Laboratory - Microbiology an d Antimicrobial susceptibilityon 01-24-2019 S. pyogenes Ag EIA Ql (Throat) Negative Normal [facility]; [facility], [facility] Vital Signs Date Time Vital Sign Value Performing Clinician Facility 04-10-2024 15:08-0400 Body height 179.07 cm Judith Orr LPN [facility], [facility].; [facility] 04-10-2024 15:08-0400 Body mass index (BMI) [Ratio] 42.86 kg/m2 Judith Orr LPN [facility].; [facility] 04-10-2024 15:08-0400 Body surface area Derived from formula 2.5 m2 Judith Orr LPN [facility], [facility].; [facility], [facility] 04-10-2024 15:08-0400 Body weight 137.44 kg Judith Orr LPN [facility], [facility].; [facility] 04-10-2024 15:08-0400 Diastolic blood pressure 79 mm[Hg] Judith Orr LPN [facility], [facility].; [place] [employer] [facility], [facility]. Comment on above: Patient Position: Sitting; Cuff Location : Left Arm; Cuff Size: Standard 04-10-2024 15:08-0400 Heart rate 102 /min Judith Orr LPN [facility], [facility].; [employer] [employer], [employer] Comment on above: Pattern: Regular 04-10-2024 15:08-0400 Systolic blood pressure 120 mm[Hg] Judith Orr LPN [facility], [facility].; [place] [employer] [place] [facility], [facility]. Comment on above: Patient Position: Sitting; Cuff Location : Left Arm; Cuff Size: Standard 01-14-2024 11:33-0400 Body temperature 97.5 [degF] Simone Caro LPN [facility], [facility].; [facility], [facility]. 01-14-2024 11:33-0400 Body weight 135.17 kg Simone Caro LPN [facility], [facility].; [employer], [facility]. 01-14-2024 11:33-0400 Diastolic blood pressure 76 mm[Hg] Simone Caro LPN [facility].; [facility], [employer]. Comment on above: Patient Position: Sitting; Cuff Location : Left Arm; Cuff Size: Standard 01-14-2024 11:33-0400 Heart rate 80 /min Simone Caro LPN [facility], [facility].; [facility], [employer]. Comment on above: Pattern: Regular 01-14-2024 11:33-0400 Inhaled oxygen concentration 21 % Simone Caro BUNDLE SORTER [facility], [facility].; [facility], [employer]. Comment on above: Room air 01-14-2024 11:33-0400 SaO2% (BldA) [Mass fraction] 96 % Simone Caro BUNDLE SORTER [facility], [facility].; [facility], [facility]. 01-14-2024 11:33-0400 Systolic blood pressure 117 mm[Hg] Simone Caro LPN [facility], [facility].; [employer] [facility], [employer] Comment on above: Patient Position: Sitting; Cuff Location : Left Arm; Cuff Size: Standard 07-02-2021 15:06-0400 Body height 179.07 cm Judith Orr LPN [facility], [facility].; [facility], [facility]. 07-02-2021 15:06-0400 Body mass index (BMI) [Ratio] 37.63 kg/m2 Judith Orr LPN [facility], [facility].; [facility], [facility]. 07-02-2021 15:06-0400 Body surface area Derived from formula 2.37 m2 Judith Orr LPN [facility], [facility].; [facility], [facility]. 07-02-2021 15:06-0400 Body weight 120.66 kg Judith Orr LPN [facility], [facility].; [facility], [facility]. 07-02-2021 15:06-0400 Diastolic blood pressure 88 mm[Hg] Judith Orr LPN [facility], [facility].; [employer] [employer] [facility], [employer]. Comment on above: Patient Position: Sitting; Cuff Location : Left Arm; Cuff Size: Standard 07-02-2021 15:06-0400 Heart rate 93 /min Judith Orr LPN [facility], [facility].; [place] [employer] [facility], [employer] Comment on above: Pattern: Regular 07-02-2021 15:06-0400 Systolic blood pressure 130 mm[Hg] [facility] [place], [employer] Comment on above: Patient Position: Sitting; Cuff Location : Left Arm; Cuff Size: Standard 10-13-2019 10:20-0500 Body height 179.07 cm Anna Fordeugg [facility] [employer] 10-13-2019 10:20-0500 Body mass index (BMI) [Ratio] 35.79 kg/m2 Anna Fordeugg [employer] [place], [employer] 10-13-2019 10:20-0500 Body surface area Derived from formula 2.32 m2 Anna Fordeugg [employer] [place], [employer] 10-13-2019 10:20-0500 Body weight 114.76 kg [facility]ugg [facility] [place], [employer] 10-13-2019 10:20-0500 Diastolic blood pressure 77 mm[Hg] Anna Fordeugg [employer] [place], [employer] Comment on above: Patient Position: Sitting; Cuff Location : Left Arm; Cuff Size: Standard 10-13-2019 10:20-0500 Heart rate 101 /min Anna Fordeugg [employer] Comment on above: Pattern: Regular 10-13-2019 10:20-0500 Systolic blood pressure 115 mm[Hg] Anna Fordeugg [employer] [place] Comment on above: Patient Position: Sitting; Cuff Location : Left Arm; Cuff Size: Standard 01-24-2019 10:36-0400 Body height 179.07 cm Hallie Arizmendi [facility] [place], [employer] 01-24-2019 10:36-0400 Body mass index (BMI) [Ratio] 35.65 kg/m2 Hallie Arizmendi [facility] [employer], [employer] 01-24-2019 10:36-0400 Body surface area Derived from formula 2.31 m2 Hallie Arizmendi LPN [facility] [place]. 01-24-2019 10:36-0400 Body temperature 98.8 [degF] Hallie Arizmendi [facility] [place]. Comment on above: Method: Tympanic 01-24-2019 10:36-0400 Body weight 114.31 kg Hallie Arizmendi [facility] [place] 01-24-2019 10:36-0400 Diastolic blood pressure 88 mm[Hg] Hallie Arizmendi [facility], [employer] [place] Comment on above: Patient Position: Sitting; Cuff Location : Left Arm; Cuff Size: Large 01-24-2019 10:36-0400 Heart rate 101 /min Hallie Arizmendi [facility], [employer] [place]. Comment on above: Pattern: Regular 01-24-2019 10:36-0400 Inhaled oxygen concentration 21 % BeckiLinda Arizmendi [facility] [place]. Comment on above: Room air 01-24-2019 10:36-0400 SaO2% (BldA) [Mass fraction] 95 % [facility] Kyleigh [facility], [employer] [place]. 01-24-2019 10:36-0400 Systolic blood pressure 126 mm[Hg] Hallie Arizmendi [facility], [employer] [place] Comment on above: Patient Position: Sitting; Cuff Location : Left Arm; Cuff Size: Large 09-02-2018 11:50-0500 Body height 179.07 cm Ynes Ochoa RN [facility], [employer] [place] 09-02-2018 11:50-0500 Body mass index (BMI) [Ratio] 35.36 kg/m2 Ynes Ochoa RN [employer] [facility], [employer] [place] 09-02-2018 11:50-0500 Body surface area Derived from formula 2.31 m2 Ynes Ochoa RN [employer] 09-02-2018 11:50-0500 Body weight 113.4 kg Ynes Ochoa RN [employer] 09-02-2018 11:50-0500 Diastolic blood pressure 80 mm[Hg] Ynes Ochoa RN [employer] Comment on above: Patient Position: Sitting; Cuff Location : Left Arm; Cuff Size: Standard 09-02-2018 11:50-0500 Heart rate 83 /min Ynes Ochoa RN [employer] Comment on above: Pattern: Regular 09-02-2018 11:50-0500 Systolic blood pressure 123 mm[Hg] Ynes Ochoa RN [employer] Comment on above: Patient Position: Sitting; Cuff Location : Left Arm; Cuff Size: Standard 10-12-2017 09:37-0500 Body height 179.07 cm Tony Garcia MD Work Phone: [employer] 10-12-2017 09:37-0500 Body mass index (BMI) [Ratio] 35.22 kg/m2 Tony Garcia MD Work Phone: [employer] 10-12-2017 09:37-0500 Body surface area Derived from formula 2.3 m2 Tony Garcia MD Work Phone: [employer] 10-12-2017 09:37-0500 Body temperature 98 [degF] Tony Garcia MD Work Phone: [employer] 10-12-2017 09:37-0500 Body weight 112.95 kg Tony Garcia MD Work Phone: [employer] 10-12-2017 09:37-0500 Diastolic blood pressure 84 mm[Hg] Tony Garcia MD Work Phone: [employer] Comment on above: Patient Position: Sitting; Cuff Location : Left Arm; Cuff Size: Standard 10-12-2017 09:37-0500 Heart rate 83 /min Tony Garcia MD Work Phone: [employer]; [employer] Comment on above: Pattern: Regular 10-12-2017 09:37-0500 Inhaled oxygen concentration 21 % Tony Garcia MD Work Phone: [employer]; [place] Comment on above: Room air 10-12-2017 09:37-0500 SaO2% (BldA) [Mass fraction] 98 % Tony Garcia MD Work Phone: [employer]; [employer] 10-12-2017 09:37-0500 Systolic blood pressure 120 mm[Hg] Tony Garcia MD Work Phone: [employer]; [employer] Comment on above: Patient Position: Sitting; Cuff Location : Left Arm; Cuff Size: Standard Encounters Encounter Date Encounter Type Care Provider Facility Start: 04-10-2024 End: 04-10-2024 Periodic preventive med est patient 18-39 yrs Tony Garcia MD Work Phone: [employer] [employer] Start: 04-10-2024 End: 04-10-2024 Physical examination Tony Garcia MD Work Phone: [employer] [employer]; [employer] Start: 04-10-2024 Physical examination Judith Orr LPN [facility] Start: 01-14-2024 End: 01-14-2024 Office outpatient visit 15 minutes Tony Garcia MD Work Phone: [employer] Start: 08-18-2021 End: 08-18-2021 Orders Tony Garcia MD Work Phone: [employer] Start: 08-11-2021 End: 08-11-2021 Medication Tony Garcia MD Work Phone: [employer] Start: 07-02-2021 End: 07-02-2021 Patient encounter procedure Tony Garcia MD Work Phone: [employer] Start: 10-13-2019 End: 10-13-2019 Office outpatient visit 15 minutes Tony Garcia MD Work Phone: [employer] Start: 01-24-2019 End: 01-24-2019 Office outpatient visit 15 minutes Tony Garcia MD Work Phone: [employer] Start: 09-02-2018 End: 09-02-2018 Office outpatient visit 15 minutes Tony Garcia MD Work Phone: [employer] Start: 10-12-2017 End: 10-12-2017 Office outpatient visit 15 minutes Tony Garcia MD Work Phone: [employer] Procedures Date Procedure Procedure Detail Performing Clinician Start: 04-10-2024 End: 04-10-2024 Depression screening Tony Garcia MD Work Phone: Start: 04-10-2024 End: 04-10-2024 Pos clin depres scrn f/u doc Tony Garcia MD Work Phone: Start: 04-10-2024 End: 04-10-2024 Scr dep neg, no plan reqd Tony Garcia MD Work Phone: Start: 11-26-2023 End: 11-26-2023 Lab findings surveillance Judith Orr [employer] Comment on above: [facility] Start: 09-02-2018 End: 09-02-2018 Scr dep neg, no plan reqd Tony Garcia MD Work Phone: Start: 09-02-2018 End: 09-02-2018 Depression screen annual Tony Cano Work Phone: Immunizations Immunization Date Immunization Notes Care Provider [facility] 04-10-2024 tetanus toxoid, redu segundo diphtheria toxoid, and acellular pertussis vaccine, adsorbed Tony Garcia MD Work Phone: [employer]; [employer] Comment on above: Site: Right ArmVIS G iven: * Tdap (8/6/21) Payers Date Payer Category Payer Policy ID Unknown ANTHEM Social History Date Type Detail Facility Alcohol Use: Alcohol Use: ; O ccasional alcohol use. [facility]; [facility] Tobacco Use Tobacco Use [facility].; [facility] Male [facility].; [facility] Work Phone: Occasional alcohol use [facility]; [facility] Work Phone: Summary Purpose Family History No Family History Records Found Advance Directives No Advanced Directives Records Found Additional Source Comments (unrecognized sect ion and content) No Status Records Found INFORMATION SOURCE (unrecogn ized section and content) DATE CREATED AUTHOR 08/16/2021 [facility] FOR RECORDS PERTAINING TO PATIENTS WHO ARE OR HAVE BEEN ENROLLED IN A CHEMICAL DEPENDENCY/SUBSTANCEABUSE PROGRAM, SOME INFORMATION MAY BE OMITTED. This clinical summary was aggregated from multiple sources. Caution should be exercised in using it in the provision of clinical care. This summary normalizes information from multiple sources, and as a consequence, information in this document may materially change the coding, format and clinical context of patient data. In addition, data may be omitted in some cases. CLINICAL DECISIONS SHOULD BE BASED ON THE PRIMARY CLINICAL RECORDS. [employer] provides no warranty or guarantee of the accuracy or completeness of information in this document.
[2024-07-21 17:44] LABS: ALB/GLOB Ratio 0.9 RATIO (0.9-2.4); AST(SGOT) 36 U/L (15-37); Alanine Aminotransfer ALT/SGPT 67 U/L (16-61); Albumin, Serum 4.1 g/dL (3.2-5.0); Alkaline Phosphatase 54 U/L (45-117); Anion Gap 3 (5-15); BUN 23 mg/dL (7-18); BUN/Creat Ratio 17.3 RATIO (10-20); Calcium,Total 9.4 mg/dL (8.5-10.1); Chloride 109 mmol/L (98-107); Creatinine, Serum 1.33 mg/dL (0.70-1.30); EST Glomerular Filtration Rate 65 mL/min (>60); Est Glom Filt Rate - Afr Amer 78 mL/min (>60); Globulin 4.6 g/dL (2.2-4.2); Glucose 92 mg/dL (74-106); Potassium 3.4 mmol/L (3.5-5.1); Protein, Total 8.7 g/dL (6.4-8.2); Sodium Level 138 mmol/L (136-145)
== END | disposition home or self-care (01) ==
LOC: MTLAB 16:42
PROVIDERS: PCP Family Medicine; Referring Provider Internal Medicine Rheumatology; Visit Provider Internal Medicine Rheumatology
DX: M05.70 Rheumatoid arthritis with rheumatoid factor of unspecified site without organ or systems involvement (principal); M25.562 Pain in left knee
CPT/HCPCS: 36415; 80053; 85025

== ENCOUNTER → 2025-04-13 | Outpatient (CLI) | payer BC, SELFPAY ==
[2025-04-13 18:26] LABS: AST(SGOT) 33 U/L (<=37); Alanine Aminotransfer ALT/SGPT 41 U/L (<=46); Albumin, Serum 4.1 g/dL (3.5-5.0); Alkaline Phosphatase 53 U/L (40-129); Anion Gap 12 (5-15); BUN 16 mg/dL (4-19); BUN/Creat Ratio 13.1 RATIO (10-20); Calcium,Total 9.3 mg/dL (7.6-11.0); Carbon Dioxide 24.1 mmol/L (21.0-32.0); Chloride 105 mmol/L (98-108); Globulin 3.9 g/dL (2.2-4.2); Glucose 101 mg/dL (70-99); Potassium 4.0 mmol/L (3.3-5.1)
[2025-04-13 18:28] LABS: Hematocrit 45.8 % (40-54); Hemoglobin 15.5 g/dL (13.0-16.5); Immature Granulocytes Count 0.020 X10^3/uL (0.0-0.0); Mean Corp Hgb Conc 33.8 g/dL (32-36); Mean Corpuscular Volume 80.9 fL (80-94); Mean Platelet Vol. 10.2 fl (6.2-12.0); NRBC Flagged by Analyzer 0 % (0-5); Platelet Count 275 K/mm3 (150-450); RBC Distribution Width CV 13.2 % (11.6-14.6); RBC Distribution Width SD 38.2 fl (35.1-43.9); Red Blood Count 5.66 M/mm3 (4.6-6.2); White Blood Count 8.4 K/mm3 (4.4-11.0)
== END | disposition home or self-care (01) ==
LOC: MTLAB 16:09
PROVIDERS: PCP Family Medicine; Referring Provider Internal Medicine Rheumatology; Visit Provider Internal Medicine Rheumatology
DX: M05.70 Rheumatoid arthritis with rheumatoid factor of unspecified site without organ or systems involvement (principal); M51.379 Other intervertebral disc degeneration, lumbosacral region without mention of lumbar back pain or lower extremity pain; K76.0 Fatty (change of) liver, not elsewhere classified; Z79.899 Other long term (current) drug therapy; G47.33 Obstructive sleep apnea (adult) (pediatric)
CPT/HCPCS: 36415; 80053; 85025